=== PATIENT | male | born 1965 | race Caucasian/White ===

== ENCOUNTER 2021-06-23 19:46 | Emergency (ER) | payer MEDICAID ==
[~2021-06-23] VITALS: Ht 182.9 cm; Wt 90.7 kg
--- NOTE | 2021-06-23 19:55 | NUR ---
Dr. Dela Cruz at bedside for MSE.
[2021-06-23] MEDS ORDERED: IV NORMAL SALINE 1000 ML BAG IV ONE (20:00)
[2021-06-23 20:23] LABS: HEMATOCRIT 41.6 % (36.7-47.1); MEAN CORPUSCULAR HEMOGLOBIN 30.8 uug (23.8-33.4); MEAN CORPUSCULAR VOLUME 91.7 fL (73.0-96.2); PLATELET COUNT (AUTO) 119 K/uL (152-348)
[2021-06-23 20:33] LABS: CREATININE 0.7 mg/dL (0.6-1.3); POTASSIUM 3.9 mmol/L (3.5-5.1)
[2021-06-23 20:38] LABS: BILIRUBIN,DIRECT 0.1 mg/dL (0.0-0.2); BILIRUBIN,TOTAL 0.3 mg/dL (0.2-1.0); TOTAL PROTEIN, SERUM 6.3 g/dL (6.4-8.2)
[2021-06-23 21:04] LABS: THYROID STIMULATING HORMONE 0.435 mIU/mL (0.358-3.740)
[2021-06-23 21:21] LABS: *AMPHETAMINE, URINE NEGATIVE (NEGATIVE); *CANNABINOID, URINE NEGATIVE (NEGATIVE); *COCCAINE, URINE NEGATIVE (NEGATIVE); *OPIATE, URINE NEGATIVE (NEGATIVE); *PHENCYCLIDINE SCREEN,URINE NEGATIVE (NEGATIVE)
[2021-06-23] MEDS ORDERED: ACETAMINOPHEN ES 500 MG TABLET PO ONE (22:45)
[2021-06-23] MEDS ORDERED: ACETAMINOPHEN ES 500 MG TABLET ONE (22:47)
--- NOTE | 2021-06-23 23:00 | NUR ---
Patient discharged to home in stable condition. Written and verbal after care instructions given. Patient verbalizes understanding of instructions. Stressed follow up or return to ER for worsening s/s. Patient out of ER with steady gait, no acute signs of distress, VSS, all belongings taken.
[2021-06-23 23:01] VITALS: BP 133/85
== END 2021-06-23 23:01 | disposition home or self-care (01) ==
LOC: ER 19:50
DX: F10.129 Alcohol abuse with intoxication, unspecified (principal); Y90.8 Blood alcohol level of 240 mg/100 ml or more; Z82.49 Family history of ischemic heart disease and other diseases of the circulatory system; D69.6 Thrombocytopenia, unspecified; R03.0 Elevated blood-pressure reading, without diagnosis of hypertension
CPT/HCPCS: 36415; 84443; 85025; A4663; A9150; G0480; J7040